=== PATIENT | male | born 1995 | race Caucasian/White ===

== ENCOUNTER 2024-04-28 19:08 | Emergency (ER) | payer OTHER, SELFPAY ==
[2024-04-28 19:13] VITALS: BP 146/108; PULSE 121; TEMP 37.5; O2SAT 98; BMI 40.0
--- NOTE | 2024-04-28 19:27 | ED_ITS ---
HPI HPI - General Adult General Chief complaint: Allergic Reaction Stated complaint: Allergic Reaction Time Seen by Provider: 04/28/24 19:18 Source: patient Mode of arrival: walk-in History of Present Illness HPI narrative: This 28-year-old male with a history of GERD presents for evaluation of muscle cramps mostly in his legs. The patient states that he was given a shot of Haldol yesterday at [facility] emergency department because he presented there with vomiting. The patient states he has a history of GERD and has not been controlling his symptoms very well. He states that if he eats any fast willam d at all he gets sick and vomits. He went to the emergency department yesterday because he was vomiting which is not unusual for him but there was some blood in it. He states it was blood-tinged. He was told by the provider at [place] that his vomiting was related to smoking marijuana and he was given a shot of Haldol. His symptoms of agitation, paranoia and muscle spasms started almost immedi ately after taking the Haldol. He states he is used marijuana for many years and has never had any side effects. His vomiting has stopped but his irritability and muscle spasms have persisted. He denies that he is currently feeling paranoid. His girlfriend states the only thing that was abnormal in his lab test yesterday was his glucose that was 160. He states he has a follow-up appointment tomorrow with his family physician regarding this abnormal lab result. He denies any chest pain or shortness of breath. He has no abdominal pain at this time. He prefers standing because his muscle cramps in his legs are worse when he is lying down. Related Data Allergies Allergy/AdvReac Type Severity Reaction Status Date / Time No Known Drug Allergies Allergy Verified 04/28/24 19:42 Opioid HPI Opioid Management Most Recent Opioid Data: No Data to Display Review of Systems ROS Status of ROS 10 or more systems reviewed and unremark able except as noted in history and below Exam Narrative Exam Narrative: Vital signs and Nursing Notes reviewed: Patient is afebrile, he is tachycardic with a pulse of 121, blood pressure is elevated at 146/108, he is not hypoxic with pulse ox of 98% on room air General: Awake, alert, oriented, anxious, moderately overweight male, he is pacing in the room due to muscle spasms in his legs, no respiratory distress HEENT: Normocephalic atraumatic, mucous membranes are moist and pink, eyes are clear, normal conjunctiva, vision is grossly intact, posterior pharynx is normal in appearance. Neck: Supple, no meningeal signs, no anterior or posterior cervical lymphadenopathy Chest: Lungs are clear to auscultation with good air entry, there is no wheezing rhonchi or rales appreciated no accessory muscle use, patient is speaking in complete sentences-no chest wall tenderness to palpation CVS: Regular rate and rhythm S1-S2, tachycardic at 120 at triage, pulse at 99 on exam, no murmurs rubs or gallops appreciated ABD: Soft, nondistended, nontender, no rebound guarding or rigidity, bowel sounds are normal, no pulsatile masses appreciated Extremities: Moving all extremities, no lower extremity tenderness or swelling noted, negative Homans' sign, pulses are brisk and equal bilaterally, episodes of curling of the toes are noted when the patient is lying down. His calfs are soft and nontender Skin: Normal in appearance without rash,pallor, petechiae or purpura Neuro: No focal deficits Psych: Anxious, pacing, denies suicidal ideation or paranoia at this time Constitutional Vital Signs, click to edit/add: Last Vital Signs Temp 99.5 F 04/28/24 19:13 Pulse 121 H 04/28/24 19:13 Resp 18 04/28/24 20:55 BP 139/88 04/28/24 20:55 Pulse Ox 98 04/28/24 19:13 O2 Del Method Room Air 04/28/24 19:13 Course Vital Signs Vital signs: Vital Signs Temperature 99.5 F 04/28/24 19:13 Pulse Rate 121 H 04/28/24 19:13 Respiratory Rate 20 04/28/24 19:13 Blood Pressure 146/108 H 04/28/24 19:13 Pulse Oximetry 98 04/28/24 19:13 Oxygen Delivery Method Room Air 04/28/24 19:13 Temperature 99.5 F 04/28/24 19:13 Pulse Rate 121 H 04/28/24 19:13 Respiratory Rate 18 04/28/24 20:55 Blood Pressure 139/88 04/28/24 20:55 Pulse Oximetry 98 04/28/24 19:13 Oxygen Delivery Method Room Air 04/28/24 19:13 Medical Decision Making MDM Narrative Medical decision making narrative: This 28-year-old male who is an occasional marijuana user and was seen yesterday for [facility] due to vomiting with some blood-tinged vomit presents for evaluation of irritability with muscle spasms and earlier paranoia after being given Haldol. The provider taking care of him explained that she thought his symptoms were related to cannabinoid hyperemesis syndrome. The patient states that he has reflux and when he does not follow his normal diet or take his medications he becomes nauseated and vomits. He thinks that his vomiting yesterday was more related to his reflux been using marijuana. He has never experienced muscle cramps after medications. Upon arrival he was ambulatory in the room and could not sit down due to spasms in his feet and lower legs. His nausea and vomiting have resolved. An IV was placed and he was medicated with IV fluids, Pepcid, Benadryl and Ativan. Routine labs are ordered and are reviewed. He has a mildly elevated white count at 11.2 with a stable hemoglobin at 16.4. Electrolytes are normal. Lipase is mildly elevated at 130. Reevaluation he is resting comfortably and feeling better. He has an appointment with his family physician in 2 days and will resume his reflux medication at that time. The patient and his girlfriend cannot recall the name of the medication or I would have started it in the emergency department. Lab Data Labs: Lab Results 04/28/24 Range/Units 19:40 WBC 11.2 H (4.0-11.0) 10^3/uL RBC 5.70 (4.70-6.10) 10^6/uL Hgb 16.4 (14.0-18.0) g/dL Hct 47.6 (42.0-54.0) % MCV 83.5 (80.0-94.0) fL MCH 28.8 (25.9-34.0) pg MCHC 34.5 (29.9-35.2) g/dL RDW 12.6 (11.0-15.0) % Plt Count 348 (150-450) 10^3/uL MPV 9.3 L (9.5-13.5) fL Neut % (Auto) 76.1 H (43.0-75.0) % Lymph % (Auto) 16.9 L (20.5-60.0) % Faulk % (Auto) 6.2 (1.7-12.0) % Eos % (Auto) 0.2 L (0.9-7.0) % Baso % (Auto) 0.2 (0.2-2.0) % Neut # (Auto) 8.5 H (1.4-6.5) 10^3/uL Lymph # (Auto) 1.9 (1.2-3.8) 10^3/uL Faulk # (Auto) 0.7 (0.3-0.8) 10^3/uL Eos # (Auto) 0.0 (0.0-0.7) 10^3/uL Baso # (Auto) 0.0 (0.0-0.1) 10^3/uL Abs Immat Gran (auto) 0.04 H (0.00-0.03) 10^3/uL Imm/Tot Granulo (auto) 0.4 (0.0-0.5) % Sodium 140 (136-145) mmol/L Potassium 3.9 (3.5-5.1) mmol/L Chloride 102 (98-107) mmol/L Carbon Dioxide 27.2 (21.0-32.0) mmol/L Anion Gap 14.7 BUN 10.0 (7.0-18.0) mg/dL Creatinine 1.09 (0.70-1.30) mg/dL Est GFR ( Amer) >60 (>=60) Est GFR (Non-Af Amer) >60 (>=60) BUN/Creatinine Ratio 9.2 Glucose 104 (74-106) mg/dL Calcium 10.1 (8.5-10.1) mg/dL Magnesium 2.2 (1.8-2.4) mg/dL Total Bilirubin 0.5 (0.2-1.0) mg/dL AST 36 (15-37) U/L ALT 32 (16-63) U/L Alkaline Phosphatase 73 (46-116) U/L Total Protein 8.9 H (6.4-8.2) g/dL Albumin 4.9 (3.4-5.0) g/dL Globulin 4.0 g/dL Albumin/Globulin Ratio 1.2 Lipase 130.0 H (16.0-77.0) U/L Discharge Plan Discharge Stand Alone Forms: Portal Instructions Chief Complaint: Allergic Reaction Clinical Impression: Adverse reaction to drug, Chronic GERD Patient Disposition: Home, Self-Care Time of Disposition Decision: 20:44 Condition: Good Print Language: Citizen Of [place] Instructions: Diet for Stomach Ulcers and Gastritis (ED), GERD (Gastroesophageal Reflux Disease) (ED) Referrals: [facility] [Primary Care Provider] - 1 week Discharge Date/Time: 04/28/24 20:57
[2024-04-28 19:48] LABS: Basophils Percent Auto 0.2 % (0.2-2.0); Eosinophils Percent Auto 0.2 % (0.9-7.0); Hematocrit 47.6 % (42.0-54.0); Hemoglobin 16.4 g/dL (14.0-18.0); Immature Granulocytes Abs Auto 0.04 10^3/uL (0.00-0.03); Immature Granulocytes Pct Auto 0.4 % (0.0-0.5); Lymphocytes Absolute Auto 1.9 10^3/uL (1.2-3.8); Lymphocytes Percent Auto 16.9 % (20.5-60.0); Mean Corpuscular HGB Conc 34.5 g/dL (29.9-35.2); Mean Corpuscular Hemoglobin 28.8 pg (25.9-34.0); Mean Corpuscular Volume 83.5 fL (80.0-94.0); Mean Platelet Volume 9.3 fL (9.5-13.5); Monocytes Absolute Auto 0.7 10^3/uL (0.3-0.8); Monocytes Percent Auto 6.2 % (1.7-12.0); Neutrophils Absolute Auto 8.5 10^3/uL (1.4-6.5); Neutrophils Percent Auto 76.1 % (43.0-75.0); Platelet Count 348 10^3/uL (150-450); Red Cell Distribution Width 12.6 % (11.0-15.0); White Blood Count 11.2 10^3/uL (4.0-11.0)
[2024-04-28] MEDS: diphenhydrAMINE HCL 25 MG in 0.9 % SODIUM CHLORIDE 100 ML 301.5 MG IV (19:53)
[2024-04-28] MEDS: 0.9 % SODIUM CHLORIDE 1,000 ML 1000 ML IV (19:54)
[2024-04-28] MEDS: LORAZEPAM 2 MG/ML VIAL 1 MG IV (19:55)
[2024-04-28] MEDS: FAMOTIDINE/PF 20 MG/2 ML VIAL IV (19:58)
[2024-04-28 20:08] LABS: Alanine Aminotransferase 32 U/L (16-63); Albumin Globulin Ratio 1.2; Albumin Level 4.9 g/dL (3.4-5.0); Alkaline Phosphatase 73 U/L (46-116); Anion Gap 14.7; Aspartate Amino Transferase 36 U/L (15-37); BUN Creatinine Ratio 9.2; Bilirubin Total 0.5 mg/dL (0.2-1.0); Calcium 10.1 mg/dL (8.5-10.1); Carbon Dioxide 27.2 mmol/L (21.0-32.0); Chloride 102 mmol/L (98-107); Estimated GFR (African America >60 (>=60); Estimated GFR (Non-African Ame >60 (>=60); Glucose 104 mg/dL (74-106); Potassium 3.9 mmol/L (3.5-5.1); Sodium 140 mmol/L (136-145); Total Protein 8.9 g/dL (6.4-8.2)
[2024-04-28 20:27] LABS: Magnesium 2.2 mg/dL (1.8-2.4)
[2024-04-28 20:50] VITALS: BP 137/82
[2024-04-28 20:55] VITALS: BP 139/88
== END 2024-04-28 20:57 | disposition home or self-care (01) ==
PROVIDERS: Emergency Provider Emergency Medicine
DX: R25.2 Cramp and spasm (principal); T43.4X5A Adverse effect of butyrophenone and thiothixene neuroleptics, initial encounter; K21.9 Gastro-esophageal reflux disease without esophagitis; F12.90 Cannabis use, unspecified, uncomplicated
CPT/HCPCS: 36415; 80053; 83690; 83735; 85025; 96365; 96375; 99284; J1200; J2060